=== PATIENT | male | born 1955 | race Caucasian/White ===

== ENCOUNTER → 2023-07-12 11:06 | Outpatient (REF) | payer MEDICARE, SELFPAY | LOC: HWRAD 11:06 | PROVIDERS: ATTENDING PHYSICIAN Family Medicine | DX: R05.3 Chronic cough (principal) | CPT/HCPCS: 71046 ==

== ENCOUNTER → 2023-12-02 06:32 | Day surgery (SDC) | payer MEDICARE, SELFPAY ==
[2023-12-02 09:35] LABS: Glucose - Point of Care 117 mg/dl (70-99)
== END ==
LOC: GI 06:32
PROVIDERS: ATTENDING PHYSICIAN Internal Medicine
DX: Z12.11 Encounter for screening for malignant neoplasm of colon (principal); K64.8 Other hemorrhoids; D12.0 Benign neoplasm of cecum; Z86.010 Personal history of colon polyps
CPT/HCPCS: 45385; 88305; 82962